=== PATIENT | female | born 2000 | race Caucasian/White ===

== ENCOUNTER 2022-09-07 16:17 | Emergency (ER) | payer OTHER, SELFPAY ==
[2022-09-07 16:23] VITALS: BP 142/65; PULSE 81; RESP 17; TEMP 37.2; O2SAT 99
--- NOTE | 2022-09-07 17:10 | ED.HA ---
HPI - Headache General Chief Complaint: Headache Stated Complaint: Migraine, 07/20 Time Seen by Provider: 09/07/22 17:03 Mode of arrival: Ambulatory History of Present Illness HPI Narrative: Patient is a 22-year-old female who is here for evaluation of discomfort to the right side of her head. She states that for the past couple days she has had sharp episodes where she has pain that lasts for seconds and then goes away. Rashes. She does have history of headaches in the past. She describes them as migraines but no diagnosis of migraine. The headache she is having currently is not like her prior headaches. No fevers. No neck pain. Has tried ibuprofen at home. Related Data Home Medications Medication Instructions Recorded Confirmed No Known Home Medications 09/07/22 09/07/22 Allergies Allergy/AdvReac Type Severity Reaction Status Date / Time No Known Drug Allergies Allergy Verified 09/07/22 16:28 Review of Systems Constitutional Constitutional: Reports system reviewed and no additional complaints, except as documented Eyes Eyes: Reports system reviewed and no additional complaints, except as documented ENT Ears, Nose, Mouth, and Throat: Reports system reviewed and no additional complaints, except as documented Integumentary/Breasts Skin/Breast: Reports system reviewed and no additional complaints, except as documented Neurologic Neurologic: Reports system reviewed and no additional complaints, except as documented Patient History Medical History Healthy adult Social History Smoking Status: Former smoker Smoking Status: Former smoker alcohol intake frequency: other Substance Use Type: does not use Exam Initial Vital Signs Initial Vital Signs: Vital Signs Temperature 99 F 09/07/22 16:23 Pulse Rate 81 09/07/22 16:23 Respiratory Rate 17 09/07/22 16:23 Blood Pressure 142/65 H 09/07/22 16:23 Pulse Oximetry 99 09/07/22 16:23 Oxygen Delivery Method 09/07/22 16:23 Const General: cooperative, comfortable and No ill appearing HENMT Head: normal to inspection and normocephalic Ears: hearing grossly normal bilaterally Face and sinus: normal facial exam Resp Effort & Inspection: normal respiratory effort Auscultation: clear to auscultation bilaterally Cardio Rate: regular rate Skin General: no rashes or lesions noted Neuro General: patient alert, patient awake and moves all extremities Extrem General: normal to inspection and capillary refill normal Course Orders Ordered: ED Orders 09/07/22 17:10 Basic Metabolic Panel Stat C-Reactive Protein Quant Stat Complete Blood Count AUTO DIFF Stat Erythrocyte Sedimentation Rate Stat Test Serum,Qual Stat Discontinued Medications Ketorolac Tromethamine (Ketorolac 30 Mg/Ml Vial) 30 mg IV NOW ONE Stop: 09/07/22 17:12 Last Admin: 09/07/22 17:28 Dose: 30 mg Documented By: IONA Vital Signs Vital signs: Vital Signs - 8 hr 09/07/22 16:23 Temperature 99 F Pulse Rate 81 Respiratory Rate 17 Blood Pressure 142/65 H Pulse Oximetry 99 Oxygen Delivery Method Room Air MDM - Headache Lab Data Attestation: I reviewed the patient's lab results. Result diagrams: 09/07/22 17:10 09/07/22 17:10 Labs: Lab Results 09/07/22 09/07/22 09/07/22 Range/Units 17:10 17:10 17:10 WBC 4.9 (4.5-11.0) X10^3/uL RBC 3.80 L (4.0-5.2) X10^6/uL Hgb 11.5 L (12.0-16.0) g/dL Hct 34.4 L (36-46) % MCV 90.7 (80-100) fL MCH 30.4 (26-34) PG MCHC 33.5 (30-36) % RDW 13.2 (11.6-14.8) % Plt Count 252 (150-400) X10^3/uL Neut % (Auto) 53.7 (50-75) % Lymph % (Auto) 33.6 (25-40) % [place] % (Auto) 10.7 (3-14) % Eos % (Auto) 1.7 L (2-4) % Baso % (Auto) 0.3 (0-2) % Neut # (Auto) 2600 (4971-8119) /uL Lymph # (Auto) 1600 (8787-0677) /uL [place] # (Auto) 500 (0-900) /uL Eos # (Auto) 100 (0-450) /uL Baso # (Auto) 0 (0-100) /uL ESR 28 H (0-20) MM/HR Sodium 138 (137-145) mmol/L Potassium 3.6 (3.4-5.1) mmol/L Chloride 107 (98-107) mmol/L Carbon Dioxide 22 (22-32) mmol/L BUN 10 (7-17) mg/dL Creatinine 0.58 (0.52-1.04) mg/dL Estimated GFR > 60 (>60) mL/min BUN/Creatinine Ratio 17.2 (6-22) Glucose 83 (70-100) mg/dL Calcium 8.6 (8.4-10.2) mg/dL C-Reactive Protein 0.9 (<1.0) mg/dL Serum , Qual Negative (Negative) MDM Narrative Medical decision making narrative: Reports improvement symptoms at the Toradol. Low suspicion for acute intracranial pathology. Hold on any CT scan for now. No skin changes over the area. Low suspicion for temporal arteritis. No fevers. Low suspicion for meningitis. Will discharge home with instructions to continue with ibuprofen. She was given return precautions follow-up instructions. She expressed understanding and agreement. Discharge Plan Departure Patient Disposition: Home Clinical Impression: Headache Instructions: DI for Headache Activity Restrictions/Additional Instructions: Recommend that you contact your primary doctor for follow-up. Also recommend you do Tylenol and ibuprofen for any headaches. Return to the emergency department for any new symptoms. Prescriptions: No Action No Known Home Medications Referrals: ProviderCarla [Primary Care Provider] -
[2022-09-07 17:22] LABS: Add Manual Diff / Slide Review NO; Basophils Absolute Auto 0 /uL (0-100); Basophils Percent Auto 0.3 % (0-2); Eosinophils Absolute Auto 100 /uL (0-450); Eosinophils Percent Auto 1.7 % (2-4); Hematocrit 34.4 % (36-46); Hemoglobin 11.5 g/dL (12.0-16.0); Lymphocytes Absolute Auto 1600 /uL (1100-4500); Lymphocytes Percent Auto 33.6 % (25-40); Mean Corpuscular HGB Conc 33.5 % (30-36); Mean Corpuscular Hemoglobin 30.4 PG (26-34); Mean Corpuscular Volume 90.7 fL (80-100); Monocytes Absolute Auto 500 /uL (0-900); Monocytes Percent Auto 10.7 % (3-14); Neutrophils Absolute Auto 2600 /uL (1500-7000); Neutrophils Percent Auto 53.7 % (50-75); Platelet Count 252 X10^3/uL (150-400); Red Cell Distribution Width 13.2 % (11.6-14.8); White Blood Cell Count 4.9 X10^3/uL (4.5-11.0)
[2022-09-07] MEDS: KETOROLAC 30 MG/ML VIAL IV (17:28)
[2022-09-07 17:29] LABS: Pregnancy Test Serum,Qual Negative (Negative)
[2022-09-07 17:36] LABS: BUN Creatinine Ratio 17.2 (6-22); Blood Urea Nitrogen 10 mg/dL (7-17); C-Reactive Protein Quant 0.9 mg/dL (<1.0); Calcium 8.6 mg/dL (8.4-10.2); Carbon Dioxide 22 mmol/L (22-32); Chloride 107 mmol/L (98-107); Estimated Glomerular Filt Rate > 60 mL/min (>60); Glucose 83 mg/dL (70-100); HEMOLYSIS < 15 (0-50); Potassium 3.6 mmol/L (3.4-5.1); Sodium 138 mmol/L (137-145)
[2022-09-07 18:02] LABS: Erythrocyte Sedimentation Rate 28 MM/HR (0-20)
[2022-09-07 19:07] VITALS: BP 119/75; PULSE 65; RESP 16; O2SAT 99
== END 2022-09-07 19:08 | disposition home or self-care (01) ==
PROVIDERS: Emergency Provider Emergency Medicine
DX: R51.9 Headache, unspecified (principal)
CPT/HCPCS: 36415; 80048; 84703; 85025; 85651; 86140; 96374; 99284; J1885

== ENCOUNTER 2022-09-10 09:30 | Emergency (ER) | payer OTHER, SELFPAY ==
[2022-09-10] VITALS (7 sets, daily range): BP systolic 108–151; BP diastolic 59–72; PULSE 65–77; RESP 14–18; TEMP 36.6; O2SAT 99–100; BMI 25.0
[2022-09-10] MEDS: KETOROLAC 30 MG/ML VIAL IM (09:54)
--- NOTE | 2022-09-10 11:39 | ED_ITS ---
HPI - Headache General Chief Complaint: Headache Stated Complaint: migraine t-4 not getting better Time Seen by Provider: 09/10/22 11:39 Source: patient Mode of arrival: Ambulatory Limitations: no limitations History of Present Illness HPI Narrative: This is a 22-year-old female with no known medical issues, she is history of states she is never been formally diagnosed with migraines. She has had at least 1 in the past. She states typically it is frontal it has been more on the right side she is had persistent symptoms for about 4 days. She was seen here had labs but no other imaging. She is never had a CT of her brain or other imaging of her brain. She denies fevers or chills. She states no numbness, tingling or weakness. She denies vomiting with prior headaches but has had vomiting yesterday as well as some diarrhea. She denies chest pain or shortness breath. No cold cough or congestion. No dysuria urgency or frequency. She is currently on her menses and states it significantly heavier than her normal with some larger clots. She denies any issues with movement, gait or balance. No dizziness or vertigo symptoms. She has not had rashes or skin changes. No known drug allergies. She is taken Excedrin this morning at 7:00 a.m. she is not had any Tylenol. These are the normal medication she takes for headaches. She received Toradol at her prior visit which was helpful but symptoms returned shortly thereafter. Denies major surgeries. No IV drugs. She is accompanied by her . Patient's stepped out of the room while evaluating her through were no additional concerns expressed when asked specifically. Related Data Previous Rx's Medication Instructions Recorded meloxicam 7.5 mg tablet 7.5 mg PO BID PRN pain #10 tabs 09/10/22 Allergies Allergy/AdvReac Type Severity Reaction Status Date / Time No Known Drug Allergies Allergy Verified 09/10/22 09:42 Review of Systems Review of Systems ROS Unobtainable: All systems reviewed & are unremarkable except as noted in HPI and below Patient History Medical History Healthy adult Social History Smoking Status: Former smoker Smoking Status: Former smoker alcohol intake frequency: other Substance Use Type: does not use Exam Narrative Exam Narrative: GEN: well nourished, well appearing female, alert and oriented x 3, patient appears to be in mild distress. HEENT: Atraumatic, pupils are equal round reactive to light, extraocular movements are intact, nares are clear, TMs are clear with no fluid, there is no conjunctival pallor. Throat is clear without any exudates, erythema, tonsillar enlargement or uvular deviation, no meningeal signs. Full range of motion. HEART: Regular rate and rhythm without murmur, clicks, rubs. No carotid bruits, pulses are equal in upper and lower extremities LUNGS:Lungs clear to auscultation, no wheezes, rales, crackles, chest moves symmetrically ABD:bowel sounds normal, soft, non-tender, no guarding, rebound, rigidity, no masses noted, no hepatosplenomegaly :No CVA tenderness MSCL: Non-tender, no muscle atrophy, muscles strength 5/5 upper and lower extremities, full range of motion, normal gait NEURO:CN 2-12 intact, sensation normal, reflexes 2/4 upper and lower extremities. finger nose finger test normal, heel maynard test normal, romberg normal SKIN: Rash, erythema or other skin changes. Initial Vital Signs Initial Vital Signs: Vital Signs Temperature 97.9 F 09/10/22 09:35 Pulse Rate 77 09/10/22 09:35 Respiratory Rate 14 09/10/22 09:35 Blood Pressure 151/72 H 09/10/22 09:35 Pulse Oximetry 100 09/10/22 09:35 Oxygen Delivery Method 09/10/22 09:35 Scores GCS [place] coma scale eye opening: Spontaneous A[place]sha coma scale verbal response: Orientated Alysha coma scale motor response: Obey commands Alysha coma scale total score: 15 Course Orders Ordered: ED Orders 09/10/22 12:07 CT head/brain wo con Stat 09/10/22 12:16 Covid-19 + FLU A/B + RSV - PCR Stat 09/10/22 12:35 Complete Blood Count AUTO DIFF Stat Comprehensive Metabolic Panel Stat Discontinued Medications Dexamethasone (Dexamethasone 10 Mg/Ml Vial) 10 mg IV NOW ONE Stop: 09/10/22 12:07 Last Admin: 09/10/22 12:49 Dose: 10 mg Documented By: CINDY Sodium Chloride (Normal Saline 0.9%) 1,000 mls @ 1,000 mls/hr IV BOLUS ONE Stop: 09/10/22 13:05 Last Infusion: 09/10/22 14:20 Dose: 0 mls/hr Documented By: Admin: 09/10/22 12:49 Dose: 1,000 mls/hr Documented By: CINDY Ketorolac Tromethamine (Ketorolac 30 Mg/Ml Vial) 30 mg IM NOW ONE Stop: 09/10/22 09:51 Last Admin: 09/10/22 09:54 Dose: 30 mg Documented By: DONTA Metoclopramide HCl (Metoclopramide 10 Mg/2 Ml Inj) 10 mg IV NOW ONE Stop: 09/10/22 12:07 Last Admin: 09/10/22 12:46 Dose: 10 mg Documented By: CINDY Reevaluation(s) Reevaluation #1: Patient full nursing her headache had improved significantly was /10 when I go into the room she states it is the same as it was earlier. Patient is otherwise asymptomatic, she appears well reviewed her findings from today she notes at this time that she does wear glasses she is not for sure why she wears them but has been at least 2 beers since her eyes have been rechecked. She does note a little vision change on the right but not persistently. When questioned further sounds like she wears her glasses typically for nighttime driving. She has a follow-up appointment with her primary care this coming week and she states she is due to have her eyes checked as well. Discussed return precautions all questions answered. Time: 14:30 Vital Signs Vital signs: Vital Signs - 8 hr 09/10/22 11:11 09/10/22 12:57 09/10/22 12:57 Pulse Rate 73 65 Respiratory Rate 18 16 Blood Pressure 118/67 117/67 117/67 Pulse Oximetry 100 99 Oxygen Delivery Method Room Air Room Air 09/10/22 12:57 09/10/22 13:00 09/10/22 13:00 Pulse Rate 66 68 Respiratory Rate Blood Pressure 108/60 Pulse Oximetry 99 100 Oxygen Delivery Method Room Air 09/10/22 13:30 09/10/22 13:30 09/10/22 14:00 Pulse Rate 68 Respiratory Rate Blood Pressure 111/65 109/59 L Pulse Oximetry 100 Oxygen Delivery Method 09/10/22 14:00 09/10/22 14:30 09/10/22 14:30 Pulse Rate 66 69 Respiratory Rate Blood Pressure 114/62 Pulse Oximetry 100 99 Oxygen Delivery Method Room Air Room Air MDM - Headache Lab Data Result diagrams: 09/10/22 12:35 09/10/22 12:35 Labs: Lab Results 09/10/22 09/10/22 09/10/22 Range/Units 12:16 12:35 12:35 WBC 5.4 (4.5-11.0) X10^3/uL RBC 3.84 L (4.0-5.2) X10^6/uL Hgb 11.6 L (12.0-16.0) g/dL Hct 34.9 L (36-46) % MCV 90.8 (80-100) fL MCH 30.3 (26-34) PG MCHC 33.3 (30-36) % RDW 13.2 (11.6-14.8) % Plt Count 262 (150-400) X10^3/uL Neut % (Auto) 54.7 (50-75) % Lymph % (Auto) 36.5 (25-40) % [place] % (Auto) 7.4 (3-14) % Eos % (Auto) 0.9 L (2-4) % Baso % (Auto) 0.5 (0-2) % Neut # (Auto) 2900 (7367-0295) /uL Lymph # (Auto) 2000 (0946-4973) /uL [place] # (Auto) 400 (0-900) /uL Eos # (Auto) 0 (0-450) /uL Baso # (Auto) 0 (0-100) /uL Sodium 139 (137-145) mmol/L Potassium 3.7 (3.4-5.1) mmol/L Chloride 106 (98-107) mmol/L Carbon Dioxide 22 (22-32) mmol/L BUN 9 (7-17) mg/dL Creatinine 0.54 (0.52-1.04) mg/dL Estimated GFR > 60 (>60) mL/min BUN/Creatinine Ratio 16.7 (6-22) Glucose 89 (70-100) mg/dL Calcium 9.0 (8.4-10.2) mg/dL Total Bilirubin 0.3 (0.2-1.3) mg/dL AST 22 (14-36) IU/L ALT 23 (<35) IU/L Alkaline Phosphatase 72 (38-126) U/L Total Protein 8.5 H (6.3-8.2) g/dL Albumin 4.6 (3.5-5.0) g/dL Globulin 3.9 (1.7-4.1) g/dL Albumin/Globulin Ratio 1.2 (1.0-2.8) SARS-CoV-2 (PCR) Negative (Negative) Influenza A (RT-PCR) Flu a negative (NEGATIVE) Influenza B (RT-PCR) Flu b negative (NEGATIVE) RSV (PCR) Negative (Negative) Point of Care Testing Test Results Negative Urine Dip Bedside Urine Glucose Negative Bedside Urine Bilirubin - Negative Bedside Urine Ketone - Negative Urine Specific [place] 1.025 Bedside Urine Occult Blood - Negative Bedside Urine pH 6.0 Bedside Urine Protein - Negative Bedside Urine Urobilinogen - Negative Bedside Urine Nitrite - Negative Bedside Urine Leukocytes - Negative Esterase MDM Narrative Medical decision making narrative: This is a 22-year-old female who represents with persistent right-sided headache after several days of symptoms she is had prior headaches this is a little bit worse than her past she is had 1 prior migraine but has never had formal diagnosis or seen anyone, she is never had any imaging. She had labs on the which showed ESR 28 with a negative C-reactive protein and no other major changes. Patient has negative head CT, labs overall reassuring negative for influenza, RSV and COVID, patient's neurologic exam is reassuring and my suspicion for acute intracranial pathology is low. Patient notes on recheck t hat she does wear glasses it has been 2 years since she is had her vision rechecked and she isn't noticing significant changes but she is also unsure why she wear than but thinks she wears them at night for driving only. Discharge Plan Departure Patient Disposition: Home Clinical Impression: Migraine Activity Restrictions/Additional Instructions: Please follow-up with your physician at her scheduled appointment. I would recommend following up with Ophthalmology or Optometry for recheck of y our eyes since you wear glasses and have not had them checked in the last couple years. Your evaluation overall today is reassuring. You may try meloxicam 1 tablet every 12 hours needed for headaches. You can take Tylenol with this up to a 1000 mg every 6 hours. Prescription sent to [facility] in [place]. Please return for fevers, rapidly worsening headaches, new vision changes, difficulty with speech, numbness, tingling weakness, difficulty with ambulating, persistent vomiting or other new or concerning changes. Prescriptions: New meloxicam 7.5 mg tablet 7.5 mg PO BID PRN (Reason: pain) Qty: 10 0RF Referrals: ProviderCarla [Primary Care Provider] - Visit Report Forms: Patient Portal/API
--- NOTE | 2022-09-10 12:07 | DI.CT.S_ITS ---
PROCEDURE: CT HEAD/BRAIN WO CON INDICATIONS: andersen right sided, different from prior x 4 days TECHNIQUE: Noncontrast 4.5 mm thick angled axial sections acquired from the foramen magnum to the vertex, with coronal and sagittal reformats. For radiation dose reduction, the following was used: automated exposure control, adjustment of mA and/or kV according to patient size. COMPARISON: None. FINDINGS: Image quality: Excellent. CSF spaces: Basal cisterns are patent. No extra-axial fluid collections. Ventricles are normal in size and shape. Brain: No midline shift. No intracranial masses or hemorrhage. Joy-white matter interface is normal. Skull and face: Calvarium and visualized facial bones are intact, without suspicious lesions. Sinuses: Visualized sinuses and mastoids are clear. IMPRESSION: No acute intracranial hemorrhage is seen. Unremarkable intracranial study, without an imaging explanation found for the patient's presenting history of headache. Dictated by: Renzo Miller M.D. on 09/10/2022 at 11:51 Approved by: Renzo Miller M.D. on 09/10/2022 at 11:53
[2022-09-10 12:42] LABS: Add Manual Diff / Slide Review NO; Basophils Absolute Auto 0 /uL (0-100); Basophils Percent Auto 0.5 % (0-2); Eosinophils Absolute Auto 0 /uL (0-450); Eosinophils Percent Auto 0.9 % (2-4); Hematocrit 34.9 % (36-46); Hemoglobin 11.6 g/dL (12.0-16.0); Lymphocytes Absolute Auto 2000 /uL (1100-4500); Lymphocytes Percent Auto 36.5 % (25-40); Mean Corpuscular HGB Conc 33.3 % (30-36); Mean Corpuscular Hemoglobin 30.3 PG (26-34); Mean Corpuscular Volume 90.8 fL (80-100); Monocytes Absolute Auto 400 /uL (0-900); Monocytes Percent Auto 7.4 % (3-14); Neutrophils Absolute Auto 2900 /uL (1500-7000); Neutrophils Percent Auto 54.7 % (50-75); Platelet Count 262 X10^3/uL (150-400); Red Blood Cell Count 3.84 X10^6/uL (4.0-5.2); Red Cell Distribution Width 13.2 % (11.6-14.8); White Blood Cell Count 5.4 X10^3/uL (4.5-11.0)
[2022-09-10] MEDS: METOCLOPRAMIDE 10 MG/2 ML INJ IV (12:46)
[2022-09-10] MEDS: SODIUM CHLORIDE 0.9% 1,000 ML 1000 ML IV (12:49)
[2022-09-10] MEDS: DEXAMETHASONE 10 MG/ML VIAL IV (12:49)
[2022-09-10 13:02] LABS: Alanine Aminotransferase 23 IU/L (<35); Albumin 4.6 g/dL (3.5-5.0); Albumin Globulin Ratio 1.2 (1.0-2.8); Alkaline Phosphatase 72 U/L (38-126); Aspartate Aminotransferase 22 IU/L (14-36); BUN Creatinine Ratio 16.7 (6-22); Bilirubin Total 0.3 mg/dL (0.2-1.3); Blood Urea Nitrogen 9 mg/dL (7-17); Carbon Dioxide 22 mmol/L (22-32); Chloride 106 mmol/L (98-107); Estimated Glomerular Filt Rate > 60 mL/min (>60); Globulin 3.9 g/dL (1.7-4.1); Glucose 89 mg/dL (70-100); HEMOLYSIS < 15 (0-50); Potassium 3.7 mmol/L (3.4-5.1); Sodium 139 mmol/L (137-145); Total Protein 8.5 g/dL (6.3-8.2)
[2022-09-10 13:30] LABS: Influenza A - CEPHEID Flu A NEGATIVE (NEGATIVE); Influenza B - CEPHEID Flu B NEGATIVE (NEGATIVE); Respiratory Syncytial Virus Negative (Negative)
[2022-09-10 13:31] LABS: COVID-19 CEPHEID 4-PLEX PCR Negative (Negative)
== END 2022-09-10 14:50 | disposition home or self-care (01) ==
PROVIDERS: Emergency Provider Emergency Medicine
DX: G43.909 Migraine, unspecified, not intractable, without status migrainosus (principal); Z20.822 Contact with and (suspected) exposure to COVID-19
CPT/HCPCS: 0241U; 36415; 70450; 80053; 81003; 81025; 85025; 96361; 96372; 96374; 96375; 99284; J1100; J1885; J2765

== ENCOUNTER 2023-04-29 15:29 | Emergency (ER) | payer OTHER, SELFPAY ==
[2023-04-29 15:43] VITALS: BP 153/83; PULSE 99; RESP 14; TEMP 36.8; O2SAT 100; BMI 28.3
--- NOTE | 2023-04-29 15:46 | DI.RAD.S_ITS ---
PROCEDURE: XR ANKLE RT MIN 3V INDICATIONS: ankle/foot pain TECHNIQUE: 3 views of the ankle were acquired. COMPARISON: None. FINDINGS: Bones: Medial malleolus avulsion fracture versus accessory ossicle. Ankle mortise is normally aligned. No suspicious bony lesions. Soft tissues: No tibiotalar joint effusion. Achilles tendon appears normal. IMPRESSION: Small medial malleolus avulsion fracture versus accessory ossicle. Please correlate clinically for point tenderness. Dictated by: Marilynn Morales MD, PhD on 04/29/2023 at 16:12 Approved by: Marilynn Morales MD, PhD on 04/29/2023 at 16:13
--- NOTE | 2023-04-29 15:46 | DI.RAD.S_ITS ---
PROCEDURE: XR FOOT RT MIN 3V INDICATIONS: ankle/foot pain TECHNIQUE: 3 views of the foot were acquired. COMPARISON: None. FINDINGS: Bones: No fractures or dislocations. No suspicious bony lesions. Soft tissues: No tibiotalar joint effusion. Achilles tendon appears normal. IMPRESSION: No fracture. No osseous lesion. If symptoms and/or clinical suspicion for pathology persists, further assessment with repeat radiographs (7-10 days) or advanced imaging (e.g. CT, MRI or bone scan) should be considered. Dictated by: Marilynn Morales MD, PhD on 04/29/2023 at 16:13 Approved by: Marilynn Morales MD, PhD on 04/29/2023 at 16:13
--- NOTE | 2023-04-29 16:25 | ED.LOWEXIN ---
HPI - Extremity Injury (Lower) <REGULO Truong - Last Filed: 04/29/23 18:01> General Chief Complaint: Extremity Injury, Lower Stated Complaint: Ankle inj Time Seen by Provider: 04/29/23 16:25 Source: patient Mode of arrival: Ambulatory History of Present Illness HPI Narrative: This is a 23-year-old female presents to the emergency department with a right ankle injury that she sustained 5 days ago while sliding water slide, states that she hit her foot wrong when she got to the bottom. She isn't sure what happened but thinks there was twisting involved. She has pain in the medial aspect of her right ankle and in her right mid foot. She denies numbness, tingling, weakness and states that her pain has been ongoing she has some swelling to her right ankle. Complains of right foot and ankle pain. She denies any knee pain. Related Data Previous Rx's Medication Instructions Recorded meloxicam 7.5 mg tablet 7.5 mg PO BID PRN pain #10 tabs 09/10/22 erythromycin 5 mg/gram (0.5 %) eye 0.5 inch ophthalmic (eye) TID #3.5 12/21/22 ointment grams Allergies Allergy/AdvReac Type Severity Reaction Status Date / Time No Known Drug Allergies Allergy Verified 04/29/23 15:43 Review of Systems <REGULO Truong - Last Filed: 04/29/23 18:01> Review of Systems ROS Unobtainable: All systems reviewed & are unremarkable except as noted in HPI and below Patient History <REGULO Truong - Last Filed: 04/29/23 18:01> Medical History Healthy adult Social History Smoking Status: Current every day smoker Smoking Status: Current every day smoker alcohol intake frequency: other Substance Use Type: does not use Exam <REGULO Truong - Last Filed: 04/29/23 18:01> Narrative Exam Narrative: Reviewed vitals signs and nursing notes. General: Pleasant, sitting upright, in no acute distress, well groomed, afebrile MSK: moves all extremities, no weakness, normal tone, ambulatory without a limp on the right, patient has tenderness to the right medial malleolus, nontender to the lateral malleolus, nontender over the Achilles tendon, PT DP pulses are 2+, no tenderness over proximal metatarsal, no plantar ecchymosis, normal range of motion, limited due to pain. Skin: brisk capillary refill, without rash or wound Neuro: clear speech and normal cognition, A&O x3, GCS 15, no focal motor or sensation deficits Initial Vital Signs Initial Vital Signs: Vital Signs Temperature 98.2 F 04/29/23 15:43 Pulse Rate 99 H 04/29/23 15:43 Respiratory Rate 14 04/29/23 15:43 Blood Pressure 153/83 H 04/29/23 15:43 Pulse Oximetry 100 04/29/23 15:43 Oxygen Delivery Method Room Air 04/29/23 15:43 <Jasmin Marie MD - Last Filed: 04/29/23 19:42> Initial Vital Signs Initial Vital Signs: Vital Signs Temperature 98.2 F 04/29/23 15:43 Pulse Rate 99 H 04/29/23 15:43 Respiratory Rate 14 04/29/23 15:43 Blood Pressure 153/83 H 04/29/23 15:43 Pulse Oximetry 100 04/29/23 15:43 Oxygen Delivery Method Room Air 04/29/23 15:43 Procedures <REGULO Truong - Last Filed: 04/29/23 18:01> Orthopedic Splinting/Casting Injury #1: Side: right Lower Extremity Injury Location: lower leg Lower Extremity Immobilizer: boot orthosis Post splinting neuro exam: intact and no change Post splinting vascular exam: intact Placed by: Nursing Course <REGULO Truong - Last Filed: 04/29/23 18:01> Orders Ordered: ED Orders 04/29/23 15:46 XR ankle RT min 3V Stat XR foot RT min 3V Stat 04/29/23 16:28 XR knee RT 3V Stat Vital Signs Vital signs: Vital Signs - 8 hr 04/29/23 15:43 Temperature 98.2 F Pulse Rate 99 H Respiratory Rate 14 Blood Pressure 153/83 H Pulse Oximetry 100 Oxygen Delivery Method Room Air <Jasmin Marie MD - Last Filed: 04/29/23 19:42> Orders Ordered: ED Orders 04/29/23 15:46 XR ankle RT min 3V Stat XR foot RT min 3V Stat 04/29/23 16:28 XR knee RT 3V Stat Vital Signs Vital signs: Vital Signs - 8 hr 04/29/23 15:43 Temperature 98.2 F Pulse Rate 99 H Respiratory Rate 14 Blood Pressure 153/83 H Pulse Oximetry 100 Oxygen Delivery Method Room Air MDM - Extremity Injury (Lower) <Carissa Torres [facility] - Last Filed: 04/29/23 18:01> Imaging Data Extremity x-ray #1: Radiologist's Impression: PROCEDURE:? XR KNEE RT 3V ? INDICATIONS:? Medial malleolus fracture ? TECHNIQUE:? 3 views of the knee were acquired.? ? COMPARISON:? None. ? FINDINGS:? ? Bones:? No fractures or dislocations.? No suspicious bony lesions.? ? Soft tissues:? No joint effusion.? No suspicious soft tissue calcifications.? ? ? IMPRESSION:? No fracture. No osseous lesion. If symptoms and/or clinical suspicion for pathology persists, further assessment with repeat radiographs (7-10 days) or advanced imaging (e.g. CT, MRI or bone scan) should be considered. ? ? Dictated by: Marilynn Morales MD, PhD on 04/29/2023 at 16:43 ? ? Approved by: Marilynn Morales MD, PhD on 04/29/2023 at 16:43 ? Extremity x-ray #2: Radiologist's Impression: PROCEDURE:? XR FOOT RT MIN 3V ? INDICATIONS:? ankle/foot pain ? TECHNIQUE:? 3 views of the foot were acquired.? ? COMPARISON:? None. ? FINDINGS:? ? Bones:? No fractures or dislocations.? No suspicious bony lesions.? ? Soft tissues:? No tibiotalar joint effusion.? Achilles tendon appears normal.? ? ? IMPRESSION:? No fracture. No osseous lesion. If symptoms and/or clinical suspicion for pathology persists, further assessment with repeat radiographs (7-10 days) or advanced imaging (e.g. CT, MRI or bone scan) should be considered. ? ? Dictated by: Marilynn Morales MD, PhD on 04/29/2023 at 16:13 ? ? Approved by: Marilynn Morales MD, PhD on 04/29/2023 at 16:13 ? Extremity x-ray #3: Radiologist's Impression: PROCEDURE:? XR ANKLE RT MIN 3V ? INDICATIONS:? ankle/foot pain ? TECHNIQUE:? 3 views of the ankle were acquired.? ? COMPARISON:? None. ? FINDINGS:? ? Bones:? Medial malleolus avulsion fracture versus accessory ossicle.? Ankle mortise is normally aligned.? No suspicious bony lesions.? ? Soft tissues:? No tibiotalar joint effusion.? Achilles tendon appears normal.? ? ? IMPRESSION:? Small medial malleolus avulsion fracture versus accessory ossicle.? Please correlate clinically for point tenderness. ? ? ? Dictated by: Marilynn Morales MD, PhD on 04/29/2023 at 16:12 ? ? Approved by: Marilynn Morales MD, PhD on 04/29/2023 at 16:13 ? MDM Narrative Medical decision making narrative: Chief Complaint: Ankle injury Multiple etiologies for patient's complaint considered including, but not limited to: Acute fracture, ankle sprain, strain, tendon injury, vascular injury, I have independently reviewed the patient's vital signs and nursing notes as well as prior records if available. Plan: Orthopedic boot for avulsion fracture, patient has tenderness over the medial malleolus and ACFL, no other tenderness to the ankle or foot to palpation, DP and tibial pulses are 2+, brisk cap refill, mild edema surrounding malleolus. X-ray of the foot is negative for acute fracture, x-ray of the right ankle shows a small medial malleolus avulsion fracture, right knee x-ray is negative for acute abnormality. She is nontender to palpation over the proximal fibula, it is okay to wrap the ankle in an Attila bandage at nighttime instead of wearing a boot. Plan for patient to follow-up with orthopedics as an outpatient. She is using ibuprofen and Tylenol for pain, states this is adequate. Recommend rest, ice, elevation, NSAIDs and Tylenol for pain. Social considerations that may affect disposition: none Questions are addressed and there is agreement with the plan and for follow-up. I consulted with the ED attending physician Dr. Marie as needed for higher level of care considerations and they were available for discussion and recommendations regarding plan of care and diagnostic testing. Patient is appropriate for outpatient management. Discharge Plan Departure Patient Disposition: Home Clinical Impression: Ankle sprain and strain Avulsion fracture of medial malleolus Qualifiers: Encounter type: initial encounter Fracture type: closed Laterality: right Qualified Code(s): S82.51XA - Displaced fracture of medial malleolus of right tibia, initial encounter for closed fracture Instructions: Ankle Sprain, Ankle Fracture Activity Restrictions/Additional Instructions: *You have been diagnosed with a small avulsion fracture off of the medial malleolus (inside ankle bone). Please use this walking boot any time your putting weight on your foot, schedule an appointment at [facility] which is down the street for an appointment next week. Continue with Tylenol and ibuprofen as tolerated, ice, elevate, and try to avoid walking on it frequently. Hopefully this starts to feel better soon. *What to do: *Please continue to take your regular medications as directed. [ ] New medication prescriptions sent to your pharmacy: [ ] [ ] New medication written as a paper prescription [ ] No new medications given *Please call and schedule follow up with your primary care provider in 2-3 days, at least for an update. Let them know you were seen in the Emergency Department for the above problem. We will electronically transmit a record of today's note if your PCP or specialist is in our system. *If you do not have a primary care provider please contact [phone] to establish care with one of the [facility] primary care providers. *Return to the Emergency Department for worsening symptoms, inability to keep liquids down, fever greater than 101F, chills, or other concerning symptom. Prescriptions: No Action erythromycin 5 mg/gram (0.5 %) ointment 0.5 inch ophthalmic (eye) TID Qty: 3.5 0RF meloxicam 7.5 mg tablet 7.5 mg PO BID PRN (Reason: pain) Qty: 10 0RF Referrals: [facility] [Provider Group] Provider,Carla HORVATH [Primary Care Provider] - Stand Alone Forms: Patient Portal/API, Work Release Note <Jasmin Marie MD - Last Filed: 04/29/23 19:42> [facility] Att[facility]: I was immediately available in the department for consultation throughout this patient's visit. Jasmin Marie MD
--- NOTE | 2023-04-29 16:28 | DI.RAD.S_ITS ---
PROCEDURE: XR KNEE RT 3V INDICATIONS: Medial malleolus fracture TECHNIQUE: 3 views of the knee were acquired. COMPARISON: None. FINDINGS: Bones: No fractures or dislocations. No suspicious bony lesions. Soft tissues: No joint effusion. No suspicious soft tissue calcifications. IMPRESSION: No fracture. No osseous lesion. If symptoms and/or clinical suspicion for pathology persists, further assessment with repeat radiographs (7-10 days) or advanced imaging (e.g. CT, MRI or bone scan) should be considered. Dictated by: Marilynn Morales MD, PhD on 04/29/2023 at 16:43 Approved by: Marilynn Morales MD, PhD on 04/29/2023 at 16:43
== END 2023-04-29 18:02 | disposition home or self-care (01) ==
PROVIDERS: Emergency Provider Nurse Practitioner Critical Care Medicine
DX: S82.51XA Displaced fracture of medial malleolus of right tibia, initial encounter for closed fracture (principal); S93.401A Sprain of unspecified ligament of right ankle, initial encounter; S96.911A Strain of unspecified muscle and tendon at ankle and foot level, right foot, initial encounter; X50.1XXA Overexertion from prolonged static or awkward postures, initial encounter
CPT/HCPCS: 73562; 73610; 73630; 99281; 99283

== ENCOUNTER → 2023-09-20 14:39 | Outpatient (CLI) | payer OTHER, SELFPAY ==
[2023-09-20 15:42] LABS: Influenza A - CEPHEID Flu A NEGATIVE (NEGATIVE); Influenza B - CEPHEID Flu B NEGATIVE (NEGATIVE); Respiratory Syncytial Virus POSITIVE (Negative)
[2023-09-20 15:44] LABS: COVID-19 CEPHEID 4-PLEX PCR Negative (Negative)
== END ==
PROVIDERS: Visit Provider Physician Assistant
DX: J06.9 Acute upper respiratory infection, unspecified (principal)
CPT/HCPCS: 0241U

== ENCOUNTER 2023-12-26 11:09 | Emergency (ER) | payer OTHER, SELFPAY ==
[2023-12-26 11:20] VITALS: BP 160/74; PULSE 112; RESP 18; TEMP 37.1; O2SAT 100; BMI 28.3
--- NOTE | 2023-12-26 11:36 | DI.RAD.S_ITS ---
PROCEDURE: XR ANKLE RT MIN 3V INDICATIONS: injury to R ankle, lateral TECHNIQUE: 3 views of the ankle were acquired. COMPARISON: [facility], CR, XR ANKLE RT MIN 3V, 04/29/2023, 15:51. FINDINGS: Bones: Redemonstration of ossific density inferior to the medial malleolus, unchanged since 04/29/2023. No fractures or dislocations. Ankle mortise is normally aligned. No suspicious bony lesions. Soft tissues: No tibiotalar joint effusion. Achilles tendon appears normal. IMPRESSION: No acute bony abnormality or significant effusion. Stable ossific density inferior to the medial malleolus since 04/29/2023, possible sequela of prior trauma. Approved by: Francheska Preston M.D. on 12/26/2023 at 11:19
[2023-12-26 12:06] VITALS: PULSE 88; O2SAT 100
--- NOTE | 2023-12-26 12:44 | ED.LOWEXIN ---
HPI - Extremity Injury (Lower) <Susan Lawler PA-C - Last Filed: 12/26/23 13:48> General Chief Complaint: Extremity Injury, Lower Stated Complaint: R/foot pain& swelling after a fall Time Seen by Provider: 12/26/23 11:26 Source: patient Mode of arrival: Ambulatory History of Present Illness HPI Narrative: 23-year-old female here in the ED for right ankle injury that occurred last night. States she was chasing after a dog when she rolled her right ankle outward. She has had pain and difficulty putting weight on it since then but she is able to walk. Ankle has been getting more swollen. She had a small avulsion fracture of the right ankle in April of last year and she is worried that she re-injured it. She has not taken any medications so far today. She denies any foot pain lower leg pain or knee pain. Related Data Home Medications Medication Instructions Recorded Confirmed No Known Home Medications 09/20/23 09/20/23 Allergies Allergy/AdvReac Type Severity Reaction Status Date / Time No Known Drug Allergies Allergy Verified 09/20/23 14:17 Review of Systems <Susan Lawler PA-C - Last Filed: 12/26/23 13:48> Review of Systems ROS Unobtainable: All systems reviewed & are unremarkable except as noted in HPI and below Patient History <Susan Lawler PA-C - Last Filed: 12/26/23 13:48> Medical History Healthy adult Social History Smoking Status: Current every day smoker Smoking Status: Current every day smoker tobacco type: vaping alcohol intake frequency: holidays/special occasions only Substance Use Type: does not use Exam <Susan Lawler PA-C - Last Filed: 12/26/23 13:48> Narrative Exam Narrative: GENERAL: Well-developed, well-nourished, appears stated age. In no acute distress HEAD: Atraumatic. Normocephalic. EYES: Pupils equal round and reactive. Extraocular motions intact. No scleral icterus. No injection or drainage. ENT: Nose without bleeding, purulent drainage. Airway patent. NECK: Trachea midline. Non tender RESPIRATORY: Respiratory rate and effort normal EXTREMITIES: Right ankle with moderate swelling of the lateral malleolus area. No ecchymosis. Moderate generalized tenderness of the lateral malleolus. No tenderness of the foot, digits, or knee. Decent range of motion maintained and strength is normal. Distal pulses intact and normal sensation NEURO: AOx3. SKIN: No rash or erythema of visible areas Initial Vital Signs Initial Vital Signs: Vital Signs Temperature 98.7 F 12/26/23 11:20 Pulse Rate 112 H 12/26/23 11:20 Respiratory Rate 18 12/26/23 11:20 Blood Pressure 160/74 H 12/26/23 11:20 Pulse Oximetry 100 12/26/23 11:20 Oxygen Delivery Method Room Air 12/26/23 11:20 <Alexandra Bonds MD - Last Filed: 12/26/23 14:15> Initial Vital Signs Initial Vital Signs: Vital Signs Temperature 98.7 F 12/26/23 11:20 Pulse Rate 112 H 12/26/23 11:20 Respiratory Rate 18 12/26/23 11:20 Blood Pressure 160/74 H 12/26/23 11:20 Pulse Oximetry 100 12/26/23 11:20 Oxygen Delivery Method Room Air 12/26/23 11:20 Course <Susan Lawler PA-C - Last Filed: 12/26/23 13:48> Orders Ordered: ED Orders 12/26/23 11:36 XR ankle RT min 3V Stat Vital Signs Vital signs: Vital Signs - 8 hr 12/26/23 11:20 12/26/23 12:06 12/26/23 12:54 Temperature 98.7 F Pulse Rate 112 H 88 95 H Respiratory Rate 18 18 Blood Pressure 160/74 H 116/92 H Pulse Oximetry 100 100 100 Oxygen Delivery Method Room Air Room Air Room Air <Alexandra Bonds MD - Last Filed: 12/26/23 14:15> Orders Ordered: ED Orders 12/26/23 11:36 XR ankle RT min 3V Stat Vital Signs Vital signs: Vital Signs - 8 hr 12/26/23 11:20 12/26/23 12:06 12/26/23 12:54 Temperature 98.7 F Pulse Rate 112 H 88 95 H Respiratory Rate 18 18 Blood Pressure 160/74 H 116/92 H Pulse Oximetry 100 100 100 Oxygen Delivery Method Room Air Room Air Room Air MDM - Extremity Injury (Lower) <Susan Lawler PA-C - Last Filed: 12/26/23 13:48> Imaging Data Extremity x-ray #1: Radiologist's Impression: [address] [address] XRay Report Signed Patient: Syl Rucker MR#: [id number] : 2000 Acct:[id number] Age/Sex: 23 / F Date of Service: 12/26/23 Loc: ED Accession Number: [id number] Procedure: XR ankle RT min 3V Ordering Provider: Susan Lawler P.A-C PROCEDURE: XR ANKLE RT MIN 3V INDICATIONS: injury to R ankle, lateral TECHNIQUE: 3 views of the ankle were acquired. COMPARISON: [facility], , XR ANKLE RT MIN 3V, 04/29/2023, 15:51. FINDINGS: Bones: Redemonstration of ossific density inferior to the medial malleolus, unchanged since 04/29/2023. No fractures or dislocations. Ankle mortise is normally aligned. No suspicious bony lesions. Soft tissues: No tibiotalar joint effusion. Achilles tendon appears normal. IMPRESSION: No acute bony abnormality or significant effusion. Stable ossific density inferior to the medial malleolus since 04/29/2023, possible sequela of prior trauma. Approved by: Francheska Preston M.D. on 12/26/2023 at 11:19 [facility] Narrative Medical decision making narrative: Differential considered includes ankle sprain, fracture, foot sprain or fracture, tendon rupture Patient's examination revealed moderate swelling of the lateral malleolus area but no ecchymosis and no neurovascular compromise. No signs of instability. No evidence of injury to the foot, knee, or lower leg otherwise. Her x-ray revealed no fracture of the right ankle. This appears to be a sprain between grades 1 and 2. Placed patient in a Aircast splint and crutches given as I do not think she should be weight-bearing until her pain resolves. Discussed ankle mobility exercises for optimal recovery. <Alexandra Bonds MD - Last Filed: 12/26/23 14:15> Differential Diagnosis Differential diagnosis: Likely ankle sprain and strain, acute internal derangement of knee and fracture of femur Discharge Plan Departure Patient Disposition: Home Clinical Impression: Ankle sprain and strain Instructions: DI for Ankle Sprain Activity Restrictions/Additional Instructions: Thank you for choosing us to care for you today. You were seen for a right ankle injury and your x-ray showed no broken bones. This means that you have an ankle sprain. You were given an air cast ankle brace along with crutches to remain nonweightbearing for the next 1-2 weeks and then advance to weight-bearing as tolerated. Please ice the ankle and keep it elevated as much as possible. You may take ibuprofen 600 mg every 6-8 hours for the pain and swelling. After 3 days, please start doing ankle mobility exercises. Follow up with her primary care provider if you continue to have pain and difficulty walking after 2 weeks. Prescriptions: No Action No Known Home Medications Referrals: ProviderCarla [Primary Care Provider] - Stand Alone Forms: Patient Portal/API, Work Release Note ED Sign-out <Alexandra Bonds MD - Last Filed: 12/26/23 14:15> Cosign ED Attending Karinature Attestation: I did not see this patient. I was available all times for consultation.
[2023-12-26 12:54] VITALS: BP 116/92; PULSE 95; RESP 18; O2SAT 100
== END 2023-12-26 12:56 | disposition home or self-care (01) ==
PROVIDERS: Emergency Provider Physician Assistant
DX: S93.401A Sprain of unspecified ligament of right ankle, initial encounter (principal); S96.911A Strain of unspecified muscle and tendon at ankle and foot level, right foot, initial encounter; X50.1XXA Overexertion from prolonged static or awkward postures, initial encounter
CPT/HCPCS: 73610; 99283

== ENCOUNTER → 2025-06-26 11:04 | Outpatient (CLI) | payer OTHER, SELFPAY | PROVIDERS: Visit Provider Chiropractor | DX: R30.0 Dysuria (principal); N94.89 Other specified conditions associated with female genital organs and menstrual cycle | CPT/HCPCS: 87086; 87210 ==